=== PATIENT | male | born 1950 | race African-American/Black ===

== ENCOUNTER 2020-01-02 08:42 | Outpatient (CLI) | payer OTHER, SELFPAY ==
--- NOTE | ~2020-01-02 | CT_ITS ---
EXAMINATION: CT chest wo con DATE: 01/02/2020 09:07 INDICATION: R91.8 Other nonspecific abnormal finding of lung field. Wheezing and chest congestion. TECHNIQUE: Computed tomography (CT) of the chest was performed without intravenous contrast. Addition al 3D reconstructions utilizing coronal maximum intensity projection (MIP) were performed. Automated exposure control and iterative reconstruction technique were employed. The dose-length product was 23 4.32 mGy-cm. COMPARISON: 11/08/2015 FINDINGS: Unchanged 7 mm noncalcified granuloma in the right upper lobe. Unchanged 2 mm granuloma, calcified an d the left lower lobe and noncalcified in the left upper lobe. No new or enlarging pulmonary nodules identified. Diffuse mild bronchial wall thickening. No pulmonary edema or pneumonia. No pleural effus ion. Heart size is normal. Unchanged mild scarring in the superior segment of the right lower lobe. A therosclerotic coronary artery calcification. No pericardial effusion. Couple calcified left hilar ly mph nodes consistent with old granulomatous disease. No pathologically enlarged thoracic lymphadenopa thy. Fusiform ascending thoracic aortic aneurysm which measures up to 4.3 cm in maximal diameter. Unc hanged likely benign 2.5 cm rim calcified hepatic mass abutting the inferior vena cava likely sequela of chronic infection or hematoma. A few scattered small hepatic callus calcification consistent with old granulomatous disease. Severe lower cervical spondylosis. Unchanged likely benign 10 mm scleroti c lesion at T11 most likely bone island or hemangioma. IMPRESSION: 1. Greater than 4 years of stability of a few small chronic calcified and noncalcified pulmonary nodu les consistent with old granulomatous disease. 2. Diffuse mild bronchial wall thickening which could be seen with bronchitis or reactive airway dise ase. No pneumonia. Reviewed, dictated and finalized at location B. IMPRESSION: 1. Greater than 4 years of stability of a few small chronic calcified and nonca lcified pulmonary nodules consistent with old granulomatous disease. 2. Diffuse mild bronchial wall thickening which could be seen with bronchitis o r reactive airway disease. No pneumonia.
== END 2020-01-02 08:43 | disposition home or self-care (01) ==
PROVIDERS: PCP Internal Medicine; Visit Provider Nurse Practitioner
DX: R91.8 Other nonspecific abnormal finding of lung field (principal)
CPT/HCPCS: 71250

== ENCOUNTER 2021-05-08 01:26 | Day surgery (SDC) | payer OTHER, SELFPAY ==
[2021-04-24 09:17] VITALS: BMI 24.5
[2021-05-08 08:47] VITALS: BP 173/83; PULSE 87; RESP 16; TEMP 36.2; O2SAT 99; BMI 25.7
[2021-05-08] MEDS: LACTATED RINGERS 1,000 ML 150 ML IV CONT (09:03)
--- NOTE | 2021-05-08 09:03 | WPDANESEPPF ---
Anes - Initial Pre Proc Eval Procedure: Operation Date: 05/08/21 10:00 Proposed Procedures p Screening Colonoscopy - Kulwinder Veronica MD Date/Time: 05/08/21 09:03 Surgeon: Kulwinder Veronica MD Pre Op Diagnosis: hx of colon polyps Patient Data Age: 70 Gender: M Height: 1.73 m Weight: 76.6 kg Last Vital Signs Temp 36.2 C L 05/08/21 08:47 Pulse 87 05/08/21 08:47 Resp 16 05/08/21 08:47 BP 173/83 H 05/08/21 08:47 Pulse Ox 99 05/08/21 08:47 Allergies Allergy/AdvReac Type Severity Reaction Status Date / Time No Known Allergies Allergy Verified 05/08/21 08:46 Home Medications Medication Instructions Recorded Confirmed Type aspirin 81 mg tablet,delayed 81 mg PO DAILY 08/18/19 05/08/21 History release latanoprost 0.005 % eye drops 1 drop EACH EYE DAILY 08/18/19 05/08/21 History multivitamin 1 tablet PO DAILY 08/18/19 05/08/21 History timolol maleate 0.5 % eye drops 1 drop EACH EYE Q12H 08/18/19 05/08/21 History naproxen sodium [Aleve] 220 mg PO BID PRN 04/24/21 05/08/21 History Patient hx anesthesia problems: none Family hx anesthesia problems: none Results Review: All pre-operative results and documents have been reviewed as part of the pre-operative evaluation. [facility] Past Medical History Medical History Benign prostatic hyperplasia with lower urinary tract symptoms Body mass index (bmi) 27.0-27.9, adult Chronic hepatitis Essential (primary) hypertension Fibromyalgia Lumbago with sciatica, unspecified side Osteoarthritis Other nonspecific abnormal finding of lung field Primary open-angle glaucoma, bilateral, stage unspecified Screening for colon cancer Type 2 diabetes mellitus without complications Family History Family History Sibling Diabetes mellitus Patient's brother is in good health Family history of diabetes mellitus in first degree relative Family history of malignant neoplasm of breast in first degree relative Patient's sister is Father Family history of cardiovascular disease Family history of heart disease in male family member before age 55 Patient's father is Mother Family history of malignant neoplasm Patient's mother is Social History Social History Smoking packs per day: 0.4 Smoking cigarettes per day: 8.0 Years smoked: 45 Smoking pack-years: 18.00 Smoking status: Current every day smoker Tobacco type: cigarettes Alcohol intake: never Substance use: never Substance use type: does not use Living arrangements: with family Spiritual care concerns: No Anes - Eval Final PreProcedure Day of Procedure 05/08/21 09:03 Patient weight: overweight Heart: regular rate and rhythm Lungs: clear to auscultation and normal air movement Airway: Mallampati scale class II Neurological: alert and oriented Last oral intake: >/= 8 hours ASA classification: III Emergent: no Anesthetic plan: proceed Anesthesia type and monitoring: general GIVS and standard monitoring Results Review: All pre-operative results and documents have been reviewed as part of the pre-operative evaluation. Informed Consent: The patient's anesthetic plan and its attendant risks and benefits were discussed with the patient/family/POA. Questions were solicited and answers provided to the satisfaction of the patient/family/POA.
--- NOTE | 2021-05-08 09:32 | PM.HPGS ---
History of Present Illness History of Present Illness Consent: Risks, benefits, and alternatives have been discussed and questions answered. Patient agrees to proceed with procedure. Chief complaint: hx of colon polyps Narrative: Ramana Carrasco is a 70 year old male referred for colon cancer screening. He had a tubular adenoma removed about 6 years ago Review of Systems Review of Systems: All systems reviewed & are unremarkable except as noted in HPI and below PMFSH Past Medical History Medical History Benign prostatic hyperplasia with lower urinary tract symptoms Body mass index (bmi) 27.0-27.9, adult Chronic hepatitis Essential (primary) hypertension Fibromyalgia Lumbago with sciatica, unspecified side Osteoarthritis Other nonspecific abnormal finding of lung field Primary open-angle glaucoma, bilateral, stage unspecified Screening for colon cancer Type 2 diabetes mellitus without complications Family History Family History Sibling Diabetes mellitus Patient's brother is in good health Family history of diabetes mellitus in first degree relative Family history of malignant neoplasm of breast in first degree relative Patient's sister is Father Family history of cardiovascular disease Family history of heart disease in male family member before age 55 Patient's father is Mother Family history of malignant neoplasm Patient's mother is Social History Social History Smoking packs per day: 0.4 Smoking cigarettes per day: 8.0 Years smoked: 45 Smoking pack-years: 18.00 Smoking status: Current every day smoker Tobacco type: cigarettes Alcohol intake: never Substance use: never Substance use type: does not use Living arrangements: with family Spiritual care concerns: No Meds Home Medications and Allergies Home Medications Medication Instructions Recorded Confirmed Type aspirin 81 mg tablet,delayed 81 mg PO DAILY 08/18/19 05/08/21 History release latanoprost 0.005 % eye drops 1 drop EACH EYE DAILY 08/18/19 05/08/21 History multivitamin 1 tablet PO DAILY 08/18/19 05/08/21 History timolol maleate 0.5 % eye drops 1 drop EACH EYE Q12H 08/18/19 05/08/21 History naproxen sodium [Aleve] 220 mg PO BID PRN 04/24/21 05/08/21 History Allergies Allergy/AdvReac Type Severity Reaction Status Date / Time No Known Allergies Allergy Verified 05/08/21 08:46 Vital Signs Vital Signs - 24 hr 05/08/21 08:47 Temperature 36.2 C L Pulse Rate 87 Respiratory Rate 16 Blood Pressure 173/83 H Pulse Oximetry 99 Exam Resp: Auscultation: clear to auscultation bilaterally Cardio: Rate: regular rate Rhythm: regular rhythm GI: GI Palp: Yes Soft to palpation and No Tenderness to palpation present (GI) Assessment and Plan Assessment and plan (1) Screening for colon cancer: Code(s): Z12.11 - Encounter for screening for malignant neoplasm of colon Status: Acute Assessment and Plan: Colonoscopy with possible biopsy or polypectomy or cautery or injection of substances.
[2021-05-08 10:30] VITALS: BP 93/48; PULSE 71; RESP 16; O2SAT 100
[2021-05-08 10:40] VITALS: BP 108/50; PULSE 71; RESP 17; O2SAT 99
[2021-05-08 10:50] VITALS: BP 121/58; PULSE 70; RESP 22; O2SAT 100
== END 2021-05-08 11:02 | disposition home or self-care (01) ==
PROVIDERS: PCP Internal Medicine; Visit Provider Internal Medicine Gastroenterology
PROC: 0DJD8ZZ Inspection of Lower Intestinal Tract, Via Natural or Artificial Opening Endoscopic (ICD-10-PCS; CPT 45378; principal; 2021-05-08 10:00)
DX: Z12.11 Encounter for screening for malignant neoplasm of colon (principal); Z86.010 Personal history of colon polyps; K57.30 Diverticulosis of large intestine without perforation or abscess without bleeding; N40.1 Benign prostatic hyperplasia with lower urinary tract symptoms; K73.9 Chronic hepatitis, unspecified; I10 Essential (primary) hypertension; M79.7 Fibromyalgia; M51.17 Intervertebral disc disorders with radiculopathy, lumbosacral region; M19.90 Unspecified osteoarthritis, unspecified site; E11.9 Type 2 diabetes mellitus without complications; F17.210 Nicotine dependence, cigarettes, uncomplicated; Z79.82 Long term (current) use of aspirin
CPT/HCPCS: G0105; J2704; J7120

== ENCOUNTER 2022-09-21 09:53 | Outpatient (CLI) | payer MEDICARE, SELFPAY ==
--- NOTE | ~2022-09-21 | CT_ITS ---
CT Scan of the Chest without Contrast: Clinical Indication: Lung cancer screening, personal history of nicotine dependence Technique: Contiguous sections were acquired throughout the chest without intravenous contrast. Dose reduction technique was used on this scan by utilizing automated exposure control and iterative recon struction technique. The dose-length product (DLP) was 113.33 mGy-cm. COMPARISON: 01/02/2020 Findings: There is no evidence of any significant mediastinal, hilar or axillary lymphadenopathy. There atheros clerotic calcifications of the aorta and coronary arteries. Ascending aorta is mildly dilated to 4.3 cm. There is no evidence of pleural or pericardial effusion. Stable 8 mm anteromedial right upper lobe pulmonary nodule (axial image 45). There is a new 8 mm pulm onary nodule in the more posterior right upper lobe (axial image 46). Images through the upper abdomen reveal densely, peripherally calcified hepatic lesion, likely benign , unchanged. Impression: Lung RADS 4A: Suspicious. 3 month follow-up CT advised. Reviewed, dictated and finalized at location . Impression: Lung RADS 4A: Suspicious. 3 month follow-up CT advised.
== END 2022-09-21 09:54 | disposition home or self-care (01) ==
PROVIDERS: PCP Family Medicine; Visit Provider Family Medicine
DX: Z12.2 Encounter for screening for malignant neoplasm of respiratory organs (principal); Z87.891 Personal history of nicotine dependence
CPT/HCPCS: 71271

== ENCOUNTER 2022-12-18 13:22 | Outpatient (CLI) | payer MEDICARE, SELFPAY ==
--- NOTE | ~2022-12-18 | CT_ITS ---
CT Scan of the Chest without Contrast: Clinical Indication: Suspected malignancy of lung Technique: Contiguous sections were acquired throughout the chest without intravenous contrast. Dose reduction technique was used on this scan by utilizing automated exposure control and iterative recon struction technique. The dose-length product (DLP) was 177.65 mGy-cm. COMPARISON: 09/21/2022, 01/02/2020 Findings: There is no evidence of any significant mediastinal, hilar or axillary lymphadenopathy. Ascending aor ta is mildly dilated to 4.3 cm. There are extensive atherosclerotic calcifications of the aorta and c oronary vessels. There is no evidence of pleural or pericardial effusion. 9 mm right upper lobe pulmonary nodule (axial image 43) is probably minimally increased from most rec ent prior exam. Additional 8 mm pulmonary nodule at the anteromedial right upper lobe is stable since 01/02/2020 (axial image 37). Stable streaky opacities in the right lower lobe since 01/02/2020. Left lung is clear. Images through the upper abdomen reveal a densely peripherally calcified hepatic lesion near the dome of the liver, unchanged. T11 sclerotic lesion is stable since 01/02/2020. Impression: 9 mm right upper lobe pulmonary nodule is probably minimally increased from prior exam. Early maligna ncy is a diagnostic consideration. Consider PET/CT, tissue sampling, or dissection. Additional right upper lobe pulmonary nodule is stable since 01/02/2020, compatible with benign lesio n. Sclerotic T11 lesion is stable since 2019, suggestive of benign lesion. Reviewed, dictated and finalized at [facility]. Impression: 9 mm right upper lobe pulmonary nodule is probably minimally increased from porfirio or exam. Early malignancy is a diagnostic consideration. Consider PET/CT, tissu e sampling, or dissection. Additional right upper lobe pulmonary nodule is stable since 01/02/2020, compat ible with benign lesion. Sclerotic T11 lesion is stable since 2020, suggestive of benign lesion.
== END 2022-12-18 13:23 | disposition home or self-care (01) ==
LOC: ANHIMG 13:25
PROVIDERS: PCP Family Medicine; Visit Provider Family Medicine
DX: R68.89 Other general symptoms and signs (principal); R91.1 Solitary pulmonary nodule
CPT/HCPCS: 71250

== ENCOUNTER 2023-04-29 10:01 | Emergency (ER) | payer MEDICARE, SELFPAY ==
--- NOTE | ~2023-04-29 | CT_ITS ---
EXAMINATION: CT abdomen pelvis w con DATE: 04/29/2023 12:05 INDICATION: Epigastric pain and right upper quadrant tenderness TECHNIQUE: Computed tomography (CT) of the abdomen and pelvis was performed with 100 mL Omnipaque-350 intravenous contrast. Automated exposure control and iterative reconstruction technique were employe d. The dose-length product was 331.96 mGy-cm. COMPARISON: 04/05/2017 FINDINGS: Lung bases are clear. Heart size is normal. No pericardial or pleural effusion. Again seen are few pa raesophageal varices. No interval change in a 2.5 cm rim calcified mass in the liver abutting the inf erior vena cava which remain stable since 2013 also likely benign sequela of prior hematoma or infect ion. There is marked distention of the gallbladder which measures up to 8.4 cm in maximal diameter. S everal gallstones are seen in the dependent neck of the gallbladder. There is also pericholecystic in flammatory stranding, all findings consistent with acute cholecystitis. No dilation of the common alison e duct or intrahepatic biliary ductal dilation. Pancreas, spleen, bilateral adrenal glands and kidney s are normal. There is likely reactive asymmetric edematous wall thickening of the gastric antrum and duodenum and of the liver centered at the splenic flexure the colon both which are likely reactive l cale along side the gallbladder. There are few scattered clonic diverticula without adjacent inflamma tory stranding to suggest diverticulitis. No bowel obstruction. Normal appendix. Bladder is normal. P rostatomegaly. There is extensive no abscess or free intraperineal gas or fluid in the abdomen and pe lvis. Calcified atherosclerosis of the aorta and many of the other arteries. Unchanged mild likely re active periportal lymphadenopathy. Severe lumbar and moderate lower thoracic spondylosis. IMPRESSION: 1. Cholelithiasis and acute cholecystitis. 2. Localized wall thickening of the hepatic flexure the colon and gastric antrum and duodenum both li melissa reactive related to the immediately adjacent acute cholecystitis. 3. Chronic mild periportal lymphadenopathy which is likely reactive. 4. Esophageal varices consistent with portal venous hypertension. Reviewed, dictated and finalized at location A. UTER PERIPHERAL EQUIPMENT OPERATOR IMPRESSION: 1. Cholelithiasis and acute cholecystitis. 2. Localized wall thickening of the hepatic flexure the colon and gastric antru m and duodenum both likely reactive related to the immediately adjacent acute c holecystitis. 3. Chronic mild periportal lymphadenopathy which is likely reactive. 4. Esophageal varices consistent with portal venous hypertension.
[2023-04-29 10:22] VITALS: BP 109/51; PULSE 99; RESP 18; TEMP 36.3; O2SAT 100
[2023-04-29 10:31] VITALS: BP 121/64; PULSE 96; RESP 22; O2SAT 100
[2023-04-29 10:46] VITALS: BP 115/61; PULSE 92; RESP 20; O2SAT 100
--- NOTE | 2023-04-29 10:47 | ED.GENADULT ---
HPI - General Adult General Chief complaint: Abdominal Pain Stated complaint: abdomen Time Seen by Provider: 04/29/23 10:27 Source: patient Mode of arrival: ambulatory Limitations: no limitations History of Present Illness HPI narrative: This is a 72-year-old male with PMH chronic hepatitis, BPH, T2 dm who presents to the ED with chief complaint abdominal pain for the past 3-4 days. Reports it is mainly located in the epigastrium and right upper quadrant. Reports some troubles with constipation and last bowel movement was 2 days ago. Unsure if he is still passing gas. In states the pain will radiate at times across the lower abdomen. Denies fevers, chills, nausea, vomiting, urinary symptoms, flank pain, chest pain, shortness of breath Reports surgical history of appendectomy when he was 8 years old. Related Data Home Medications Medication Instructions Recorded Confirmed aspirin 81 mg tablet,delayed 81 mg PO DAILY 08/18/19 05/08/21 release latanoprost 0.005 % eye drops 1 drop ophthalmic (eye) DAILY 08/18/19 05/08/21 multivitamin 1 tablet PO DAILY 08/18/19 05/08/21 timolol maleate 0.5 % eye drops 1 drop ophthalmic (eye) Q12H 08/18/19 05/08/21 naproxen sodium 220 mg capsule 220 mg PO BID PRN Pain 04/24/21 05/08/21 (Aleve) Allergies Allergy/AdvReac Type Severity Reaction Status Date / Time No Known Allergies Allergy Verified 04/21/23 10:35 Review of Systems Review of Systems: All systems as dictated in [facility] Past Medical History Medical History Benign prostatic hyperplasia with lower urinary tract symptoms Body mass index (bmi) 27.0-27.9, adult Chronic hepatitis Essential (primary) hypertension Fibromyalgia Lumbago with sciatica, unspecified side Osteoarthritis Other nonspecific abnormal finding of lung field Primary open-angle glaucoma, bilateral, stage unspecified Screening for colon cancer Type 2 diabetes mellitus without complications Family History Family History Sibling Diabetes mellitus Patient's brother is in good health Family history of diabetes mellitus in first degree relative Family history of malignant neoplasm of breast in first degree relative Patient's sister is Father Family history of cardiovascular disease Family history of heart disease in male family member before age 55 Patient's father is Mother Family history of malignant neoplasm Patient's mother is Social History Social History Smoking packs per day: 0.4 Smoking cigarettes per day: 8.0 Years smoked: 45 Smoking pack-years: 18.00 Smoking status: Current every day smoker Tobacco type: cigarettes Alcohol intake: never Substance use: never Substance use type: does not use Living arrangements: with family Spiritual care concerns: No Exam Narrative: GENERAL: Well-appearing, well-nourished, and in no acute distress. HEAD: Normocephalic, atraumatic. EYES: PERRLA and EOMI. ENT: Nares clear, no rhinorrhea or epistaxis. Mucous membranes moist. Oropharynx without tonsillar hypertrophy exudate or other lesions. NECK: Supple. No adenopathy or masses. CHEST: No respiratory distress. Clear to auscultation. No wheezes rales or rhonchi HEART: Regular rate and rhythm. No murmur heard. Normal peripheral pulses. ABDOMEN: Right upper quadrant and epigastric tenderness present. Soft, nondistended, normal active bowel sounds. MSK: Normal range of motion. No edema. SKIN: Warm, dry, no rash. NEURO: Alert and oriented x3. No focal deficits. PSYCH: Normal mood and affect. Course Vital Signs Vital signs: Vital Signs Temperature 97.4 F L 04/29/23 10:22 Pulse Rate 99 04/29/23 10:22 Respiratory Rate 18 04/29/23 10:22 Blood Pressure 109/51 L 04/29/23 10:
[2023-04-29 11:02] VITALS: BP 134/70; PULSE 92; RESP 24; O2SAT 99
[2023-04-29] MEDS: SODIUM CHLORIDE 0.9% IV 1,000 ML 999 ML IV CONT ×2 (11:26→13:55)
[2023-04-29] MEDS: ONDANSETRON INJ 4 MG/2 ML VIAL IV PUSH (11:28)
[2023-04-29] MEDS: HYDROmorphone HCL INJ (*CRX) 1 MG/ML SYR 0.5 MG IV PUSH ×2 (11:28→13:55)
[2023-04-29 11:34] LABS: Basophils Absolute Auto 0.1 K/mm3 (0.0-0.1); Basophils Percent Auto 0.3 % (0.2-1.2); Eosinophils Percent Auto 0.1 % (0-4.4); Hematocrit 41.8 % (42.0-52.0); Hemoglobin 13.6 g/dL (14.0-18.0); Immature Granulocyte Absolute 0.26 K/mm3 (0.00-0.031); Immature Granulocyte Percent A 1.5 % (0-0.5); Lymphocytes Absolute Auto 0.94 K/mm3 (0.9-3.2); Lymphocytes Percent Auto 5.4 % (18.3-44.2); Mean Corpuscular HGB Conc 32.5 g/dl (32-36); Mean Corpuscular Hemoglobin 31.1 pg (26-34); Mean Corpuscular Volume 95.7 fl (80-100); Mean Platelet Volume 11.7 fl (7.4-10.4); Monocytes Absolute Auto 1.8 K/mm3 (0.1-0.6); Monocytes Percent Auto 10.4 % (2.6-8.5); Neutrophils Absolute Auto 14.4 K/mm3 (1.3-6.7); Neutrophils Percent Auto 82.3 % (45.5-73.1); Platelet Count Result 191 k/mm3 (150-375); Red Blood Count 4.37 M/mm3 (4.6-6.20); Red Cell Distribution Width 14.6 % (11.5-14.5); White Blood Count 17.5 K/mm3 (4.5-10.0)
[2023-04-29 11:46] LABS: Alanine Aminotransferase 117 U/L (6-50); Albumin Level 3.9 g/dL (3.5-5.1); Alkaline Phosphatase 102 U/L (38-126); Anion Gap 10 mmol/L (8-16); Aspartate Amino Transferase 118 U/L (17-59); Bilirubin Direct 0.3 mg/dL (0-0.3); Bilirubin,Total 2.5 mg/dL (0.2-1.3); Blood Urea Nitrogen 21 mg/dL (9-20); Calcium 9.9 mg/dL (8.4-10.2); Carbon Dioxide 23 mmol/L (22-30); Chloride 107 mmol/L (98-107); Estimated Glomerular Filt Rate > 60; Glucose 153 mg/dL (65-110); Lipase 44 U/L (23-300); Sodium 140 mmol/L (137-145)
[2023-04-29 11:48] LABS: Lactic Acid Reflex 2.4 mmol/L (0.7-2.0)
[2023-04-29] MEDS: PIPERACILLN/TAZ 3.375GM/NS50ML 3.375 GM/50 ML BAG IVPB (13:34)
[2023-04-29 13:56] VITALS: BP 103/51; PULSE 87; RESP 19; TEMP 36.8; O2SAT 99
[2023-04-29 14:31] LABS: Reflex Lactic Acid Yes or No Add Lactic
[2023-04-29 14:45] VITALS: BP 108/60; PULSE 86; RESP 20; O2SAT 100
[2023-04-29 15:06] LABS: Lactic Acid 1.8 mmol/L (0.7-2.0)
== END 2023-04-29 15:15 | disposition home or self-care (01) ==
PROVIDERS: Emergency Provider Physician Assistant; PCP Family Medicine
DX: K80.00 Calculus of gallbladder with acute cholecystitis without obstruction (principal); K73.9 Chronic hepatitis, unspecified; E11.39 Type 2 diabetes mellitus with other diabetic ophthalmic complication; H40.1130 Primary open-angle glaucoma, bilateral, stage unspecified; H42 Glaucoma in diseases classified elsewhere; I10 Essential (primary) hypertension; M19.90 Unspecified osteoarthritis, unspecified site; M79.7 Fibromyalgia; N40.1 Benign prostatic hyperplasia with lower urinary tract symptoms; F17.210 Nicotine dependence, cigarettes, uncomplicated; Z79.82 Long term (current) use of aspirin; I85.00 Esophageal varices without bleeding
CPT/HCPCS: 36415; 74177; 80048; 80076; 83605; 83690; 85025; 87040; 96361; 96365; 96375; 96376; 99284; J1170; J2405; J2543; J7030; Q9967

== ENCOUNTER 2023-04-30 10:11 | Emergency (ER) | payer MEDICARE, SELFPAY ==
--- NOTE | ~2023-04-30 | US_ITS ---
EXAMINATION: US abdomen limited DATE: 04/30/2023 13:57 INDICATION: Cholecystitis TECHNIQUE: Multiple grayscale and Doppler ultrasound images of the abdomen were obtained. COMPARISON: CT, 04/29/2023 FINDINGS: Bowel gas obscures visualization of the pancreas. The visualized portions of the pancreas a re unremarkable. The liver is normal with normal echogenicity and echotexture. No surface nodularity. Normal hepatopetal flow in the main portal vein. The gallbladder is distended and contains multiple stones. There is mild wall thickening of the gallbladder. No pericholecystic fluid is identified. The normal common bile duct measures 4 mm. Sonographic Caruso sign is positive. IMPRESSION: 1. Cholelithiasis with sonographic findings of acute cholecystitis. Reviewed, dictated and finalized at location B. 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
[2023-04-30 10:37] VITALS: BP 131/90; PULSE 98; RESP 20; TEMP 36.8; O2SAT 100
--- NOTE | 2023-04-30 12:25 | ED.ABDPAIN ---
HPI - Abdominal Pain General Chief Complaint: Abdominal Pain Stated Complaint: ABD PAIN Time Seen by Provider: 04/30/23 12:24 Source: patient History of Present Illness HPI narrative: 72 YEARS OLD MALE CAME TO THE EMERGENCY ROOM WITH EPIGASTRIC RIGHT UPPER QUADRANT PAIN FOR THE LAST 2-3 MONTHS. GOT WORSE OVER THE LAST FEW DAYS. WAS SEEN IN OUR EMERGENCY ROOM YESTERDAY, CT SCAN OF THE ABDOMEN AND PELVIS SHOWED CHOLELITHIASIS, CHOLECYSTITIS, PATIENT DECLINED TO BE ADMITTED, SIGNED AMA CAME BACK TODAY WITH THE SAME SYMPTOMS. HE DENIES ANY FEVER, CHILLS, NAUSEA, VOMITING. PATIENT DENIES ANY HISTORY OF ABDOMINAL SURGERY. PATIENT DOES SMOKE CIGARETTES, DENIES DRINKING OR USING DRUGS. USES ALEVE NEEDED FOR ARTHRITIS. LAST MEAL WAS 2-3 DAYS AGO. History of hep C, portal hypertension, liver cirrhosis, esophageal varices Related Data Home Medications Medication Instructions Recorded Confirmed aspirin 81 mg tablet,delayed 81 mg PO DAILY 08/18/19 05/08/21 release latanoprost 0.005 % eye drops 1 drop ophthalmic (eye) DAILY 08/18/19 05/08/21 multivitamin 1 tablet PO DAILY 08/18/19 05/08/21 timolol maleate 0.5 % eye drops 1 drop ophthalmic (eye) Q12H 08/18/19 05/08/21 naproxen sodium 220 mg capsule 220 mg PO BID PRN Pain 04/24/21 05/08/21 (Aleve) Allergies Allergy/AdvReac Type Severity Reaction Status Date / Time No Known Allergies Allergy Verified 04/30/23 10:40 Review of Systems Review of Systems: All systems reviewed & are unremarkable except as noted in HPI and below PMFSH Past Medical History Medical History Benign prostatic hyperplasia with lower urinary tract symptoms Body mass index (bmi) 27.0-27.9, adult Chronic hepatitis Essential (primary) hypertension Fibromyalgia Lumbago with sciatica, unspecified side Osteoarthritis Other nonspecific abnormal finding of lung field Primary open-angle glaucoma, bilateral, stage unspecified Screening for colon cancer Type 2 diabetes mellitus without complications Family History Family History Sibling Diabetes mellitus Patient's brother is in good health Family history of diabetes mellitus in first degree relative Family history of malignant neoplasm of breast in first degree relative Patient's sister is Father Family history of cardiovascular disease Family history of heart disease in male family member before age 55 Patient's father is Mother Family history of malignant neoplasm Patient's mother is Social History Social History Smoking packs per day: 0.4 Smoking cigarettes per day: 8.0 Years smoked: 45 Smoking pack-years: 18.00 Smoking status: Current every day smoker Tobacco type: cigarettes Alcohol intake: never Substance use: never Substance use type: does not use Living arrangements: with family Spiritual care concerns: No Exam Narrative: GENERAL APPEARANCE: WELL-DEVELOPED, WELL-NOURISHED SKIN: NORMAL COLOR HEAD: NORMOCEPHALIC, NONTRAUMATIC EYES: CLEAR CONJUNCTIVA ENT: OROPHARYNX NORMAL, EARS NORMAL, NOSE NORMAL NECK: SUPPLE, NONTENDER CHEST AND RESPIRATORY: AIRWAY PATENT, NO RESPIRATORY DISTRESS, NO ACCESSORY MUSCLE USE HEART: REGULAR RATE/RHYTHM ABDOMEN: DIFFUSE UPPER ABDOMINAL TENDERNESS, MAINLY EPIGASTRIC AND RIGHT UPPER QUADRANT, POSITIVE GUARDING, NO REBOUND, QUITE BOWEL SOUNDS VASCULAR: NORMAL PERIPHERAL PULSES, NORMAL CAPILLARY REFILL. MUSCULOSKELETAL: NORMAL RANGE OF MOTION, NONTENDER BACK NEUROLOGIC: ALERT AND ORIENTED ?3, CASER IN IS NORMAL TESTED, NO GROSS MOTOR DEFICIT
[2023-04-30] MEDS: ONDANSETRON INJ 4 MG/2 ML VIAL IV PUSH (12:35)
[2023-04-30] MEDS: HYDROmorphone HCL INJ (*CRX) 1 MG/ML SYR 0.5 MG IV PUSH ×2 (12:35→15:37)
[2023-04-30] MEDS: SODIUM CHLORIDE 0.9% IV 1,000 ML 999 ML IV CONT (12:35)
[2023-04-30 14:10] LABS: Basophils Percent Auto 0.9 % (0.2-1.2); Hematocrit 43.8 % (42.0-52.0); Hemoglobin 14.4 g/dL (14.0-18.0); Immature Granulocyte Absolute 0.01 K/mm3 (0.00-0.031); Immature Granulocyte Percent A 0.2 % (0-0.5); Lymphocytes Absolute Auto 0.47 K/mm3 (0.9-3.2); Lymphocytes Percent Auto 10.7 % (18.3-44.2); Mean Corpuscular HGB Conc 32.9 g/dl (32-36); Mean Corpuscular Hemoglobin 31.1 pg (26-34); Mean Corpuscular Volume 94.6 fl (80-100); Monocytes Absolute Auto 0.4 K/mm3 (0.1-0.6); Monocytes Percent Auto 8.2 % (2.6-8.5); Neutrophils Absolute Auto 3.5 K/mm3 (1.3-6.7); Platelet Count Result 190 k/mm3 (150-375); Red Blood Count 4.63 M/mm3 (4.6-6.20); Red Cell Distribution Width 14.6 % (11.5-14.5); White Blood Count 4.4 K/mm3 (4.5-10.0)
[2023-04-30 14:23] LABS: Alanine Aminotransferase 96 U/L (6-50); Albumin Level 3.6 g/dL (3.5-5.1); Alkaline Phosphatase 127 U/L (38-126); Anion Gap 10 mmol/L (8-16); Aspartate Amino Transferase 111 U/L (17-59); Bilirubin,Total 1.8 mg/dL (0.2-1.3); Blood Urea Nitrogen 34 mg/dL (9-20); Calcium 9.3 mg/dL (8.4-10.2); Carbon Dioxide 21 mmol/L (22-30); Chloride 112 mmol/L (98-107); Estimated CRCL calculation 33 ml/min; Estimated Glomerular Filt Rate 51; Glucose 116 mg/dL (65-110); Lipase 38 U/L (23-300); Potassium 3.9 mmol/L (3.4-5.0); Sodium 143 mmol/L (137-145)
[2023-04-30] MEDS: PIPERACILLN/TAZ 3.375GM/NS50ML 3.375 GM/50 ML BAG IVPB (15:13)
[2023-04-30 17:12] VITALS: BP 122/70; PULSE 96; RESP 16; TEMP 36.6; O2SAT 100
[2023-04-30 17:15] LABS: INR 1.3; Prothrombin Time 16.6 Seconds (11.1-14.7)
[2023-04-30 17:16] LABS: Partial Thromboplastin Time 35.5 SECONDS (22.3-36.8)
[2023-04-30 17:31] LABS: INR 1.3; Prothrombin Time 16.6 Seconds (11.1-14.7)
[2023-04-30 17:32] LABS: Partial Thromboplastin Time 35.5 SECONDS (22.3-36.8)
[2023-04-30 20:53] VITALS: BP 129/81; PULSE 91; RESP 16; O2SAT 100
== END 2023-04-30 20:55 | disposition short-term general hospital (02) ==
PROVIDERS: Emergency Provider Emergency Medicine; PCP Family Medicine
DX: K80.00 Calculus of gallbladder with acute cholecystitis without obstruction (principal); N17.9 Acute kidney failure, unspecified; K73.9 Chronic hepatitis, unspecified; I10 Essential (primary) hypertension; E11.39 Type 2 diabetes mellitus with other diabetic ophthalmic complication; H40.1130 Primary open-angle glaucoma, bilateral, stage unspecified; H42 Glaucoma in diseases classified elsewhere; N40.0 Benign prostatic hyperplasia without lower urinary tract symptoms; M79.7 Fibromyalgia; M19.90 Unspecified osteoarthritis, unspecified site; F17.210 Nicotine dependence, cigarettes, uncomplicated; Z79.82 Long term (current) use of aspirin
CPT/HCPCS: 36415; 76705; 80053; 83690; 85025; 85610; 85730; 96361; 96365; 96375; 96376; 99285; J1170; J2405; J2543; J7030